=== PATIENT | female | born 1980 | race Two or more races ===

== ENCOUNTER 2017-12-12 08:57 | Emergency (ER) | payer OTHER ==
[~2017-12-12] VITALS: Ht 152.4 cm; Wt 72.1 kg
[~2017-12-12 08:57] MED LIST: ATABEX PRENATAL1 TAB; FLONASE16 GM NS; PROTONIX20 MG; SYNTHROID50 MCG; TESSALON PERLE100 MG PO; ZANTAC150 M3; ZITHROMAX500 MG PO; ZYRTEC10 MG PO
== END 2017-12-12 10:23 | disposition home or self-care (01) ==
LOC: ER 08:57
DX: S00.83XA Contusion of other part of head, initial encounter (principal); S20.222A Contusion of left back wall of thorax, initial encounter; G44.209 Tension-type headache, unspecified, not intractable; M54.89 Other dorsalgia; V49.9XXA Car occupant (driver) (passenger) injured in unspecified traffic accident, initial encounter; Y93.89 Activity, other specified; Y92.488 Other paved roadways as the place of occurrence of the external cause; Y99.8 Other external cause status

== ENCOUNTER 2018-02-10 11:04 | Outpatient (CLI) | payer OTHER | END 2018-02-10 11:10 | disposition home or self-care (01) | LOC: LAB 11:04 | DX: E03.8 Other specified hypothyroidism (principal); R51 Headache; R42 Dizziness and giddiness ==

== ENCOUNTER 2018-02-17 12:24 | Outpatient (CLI) | payer OTHER | END 2018-02-17 12:55 | disposition home or self-care (01) | LOC: LAB 12:24 | DX: E03.8 Other specified hypothyroidism (principal) ==

== ENCOUNTER 2018-04-03 09:32 | Emergency (ER) | payer OTHER ==
[~2018-04-03] VITALS: Ht 160 cm; Wt 70.8 kg
== END 2018-04-03 14:05 | disposition home or self-care (01) ==
LOC: ER 09:32
DX: G44.89 Other headache syndrome (principal)

== ENCOUNTER 2018-11-22 15:57 | Outpatient (CLI) | payer OTHER | END 2018-11-22 16:04 | disposition home or self-care (01) | LOC: LAB 15:57 | DX: J11.1 Influenza due to unidentified influenza virus with other respiratory manifestations (principal); J11.81 Influenza due to unidentified influenza virus with encephalopathy ==

== ENCOUNTER 2020-03-23 08:00 | Outpatient (CLI) | payer OTHER | END 2020-03-23 15:00 | disposition home or self-care (01) | LOC: LAB 08:00 | PROVIDERS: ATTEND General Practice | DX: B01.89 Other varicella complications (principal); Z11.59 Encounter for screening for other viral diseases ==

== ENCOUNTER 2020-08-22 10:50 | Outpatient (CLI) | payer OTHER | END 2020-08-22 12:41 | disposition home or self-care (01) | LOC: LAB 10:50 | PROVIDERS: ATTEND General Practice | DX: D64.89 Other specified anemias (principal); N39.0 Urinary tract infection, site not specified; E11.9 Type 2 diabetes mellitus without complications; E78.49 Other hyperlipidemia; E03.8 Other specified hypothyroidism; E55.9 Vitamin D deficiency, unspecified; M79.18 Myalgia, other site; B96.0 Mycoplasma pneumoniae [M. pneumoniae] as the cause of diseases classified elsewhere; B34.8 Other viral infections of unspecified site; R05 Cough ==

== ENCOUNTER 2020-12-31 17:55 | Emergency (ER) | payer OTHER ==
[~2020-12-31] VITALS: Ht 157.5 cm; Wt 76.7 kg
[2020-12-31] MEDS ORDERED: MEDROLPACK PO (21:23)
[2020-12-31] MEDS ORDERED: CYCLOBENZAPRINE10 MG PO (21:23)
== END 2020-12-31 21:44 | disposition home or self-care (01) ==
LOC: ER 17:55
DX: M54.5 Low back pain (principal)

== ENCOUNTER 2021-03-30 10:25 | Outpatient (CLI) | payer OTHER ==
[~2021-03-30 10:25] MED LIST changes: +CYCLOBENZAPRINE10 MG PO; +DICLOFENAC SODI75 MG PO; +MEDROLPACK PO
[2021-04-03] MEDS ORDERED: FAMOTIDINE20 MG (11:47)
[2021-04-03] MEDS ORDERED: BENZONATATE100 MG (11:47)
[2021-04-03] MEDS ORDERED: MONTELUKAST SOD10 MG (11:47)
[2021-04-03] MEDS ORDERED: CETIRIZINE HCL10 MG (11:47)
== END 2021-03-30 10:36 | disposition home or self-care (01) ==
LOC: SONOGRAMA 10:25
PROVIDERS: ATTEND General Practice
DX: E04.8 Other specified nontoxic goiter (principal)

== ENCOUNTER → 2021-04-03 | Emergency (ER) | payer OTHER ==
[~2021-04-03] VITALS: Ht 157.5 cm; Wt 74.4 kg
[~2021-04-03] MED LIST changes: +BENZONATATE100 MG; +CETIRIZINE HCL10 MG; +FAMOTIDINE20 MG; +MONTELUKAST SOD10 MG
== END | disposition home or self-care (01) ==
LOC: ER 11:40
DX: F41.0 Panic disorder [episodic paroxysmal anxiety] (principal); J80 Acute respiratory distress syndrome; R06.4 Hyperventilation

== ENCOUNTER 2021-07-18 10:33 | Emergency (ER) | payer OTHER ==
[~2021-07-18] VITALS: Ht 157.5 cm; Wt 74.8 kg
== END 2021-07-18 12:02 | disposition home or self-care (01) ==
LOC: ER 10:33
DX: A49.3 Mycoplasma infection, unspecified site (principal)

== ENCOUNTER 2021-11-05 14:16 | Outpatient (CLI) | payer OTHER | END 2021-11-05 14:20 | disposition home or self-care (01) | LOC: SONOGRAMA 14:16 | PROVIDERS: ATTEND Otolaryngology | DX: E03.9 Hypothyroidism, unspecified (principal) ==

== ENCOUNTER 2021-11-05 14:57 | Outpatient (CLI) | payer OTHER | END 2021-11-05 15:01 | disposition home or self-care (01) | LOC: LAB 14:57 | PROVIDERS: ATTEND General Practice | DX: Z20.828 Contact with and (suspected) exposure to other viral communicable diseases (principal) ==

== ENCOUNTER 2022-05-06 18:01 | Emergency (ER) | payer OTHER ==
[~2022-05-06] VITALS: Ht 165.1 cm; Wt 74.8 kg
[2022-05-06] MEDS ORDERED: ZITHROMAX500 MG PO (19:23)
[2022-05-06] MEDS ORDERED: FLONASE ALLERG9.9 ML NASAL (19:23)
[2022-05-06] MEDS ORDERED: SINUS RINSE ST1 EACH NS (19:23)
== END 2022-05-06 20:44 | disposition home or self-care (01) ==
LOC: ER 18:01
DX: J06.9 Acute upper respiratory infection, unspecified (principal); Z20.822 Contact with and (suspected) exposure to COVID-19

== ENCOUNTER 2023-03-11 13:42 | Emergency (ER) | payer OTHER ==
[~2023-03-11] VITALS: Ht 157.5 cm; Wt 74.4 kg
[~2023-03-11 13:42] MED LIST changes: +FLONASE ALLERG9.9 ML NASAL; +FLONASE16 GM NASAL; +SINUS RINSE ST1 EACH NS
[2023-03-11] MEDS ORDERED: PEPCID AC10 MG (13:56)
[2023-03-11] MEDS ORDERED: SINGULAIR4 M1 PO (13:56)
[2023-03-11] MEDS ORDERED: ZYRTEC10 M3 PO (13:56)
== END 2023-03-11 16:11 | disposition home or self-care (01) ==
LOC: ER 13:42
DX: U07.1 COVID-19 (principal); J45.909 Unspecified asthma, uncomplicated; F41.8 Other specified anxiety disorders

== ENCOUNTER 2023-03-16 12:43 | Outpatient (CLI) | payer OTHER ==
[~2023-03-16 12:43] MED LIST changes: +PEPCID AC10 MG; +SINGULAIR4 M1 PO; +ZYRTEC10 M3 PO
== END 2023-03-16 12:53 | disposition home or self-care (01) ==
LOC: SONOGRAMA 12:43
PROVIDERS: ATTEND Student in an Organized Health Care Education/Training Program
DX: E89.0 Postprocedural hypothyroidism (principal)

== ENCOUNTER 2023-09-25 10:25 | Outpatient (CLI) | payer OTHER | END 2023-09-25 23:00 | disposition home or self-care (01) | LOC: LAB 10:25 | DX: Z20.822 Contact with and (suspected) exposure to COVID-19 (principal) ==

== ENCOUNTER 2024-11-18 13:05 | Outpatient (CLI) | payer OTHER | END 2024-11-18 13:08 | disposition home or self-care (01) | LOC: SONOGRAMA 13:05 | DX: E04.1 Nontoxic single thyroid nodule (principal) ==

== ENCOUNTER 2025-02-17 13:19 | Emergency (ER) | payer OTHER ==
[~2025-02-17] VITALS: Ht 162.6 cm; Wt 77.1 kg
== END 2025-02-17 14:37 | disposition home or self-care (01) ==
LOC: ER 13:19
DX: U07.1 COVID-19 (principal); J06.9 Acute upper respiratory infection, unspecified

== ENCOUNTER → 2025-05-22 | Outpatient (CLI) | payer OTHER | END | disposition home or self-care (01) | LOC: SONOGRAMA 13:52 | DX: E04.1 Nontoxic single thyroid nodule (principal) ==